=== PATIENT | male | born 1995 | race Two or more races ===

== ENCOUNTER 2017-11-24 22:16 | Emergency (ER) | payer MEDICAID ==
[~2017-11-24] VITALS: Ht 182.9 cm; Wt 90.7 kg
[2017-11-24 22:24] VITALS: Ht 182.9 cm; Wt 90.7 kg
[2017-11-24 23:27] VITALS: BP 142/61
== END 2017-11-24 23:27 | disposition home or self-care (01) ==
LOC: ED 22:16
DX: K60.0 Acute anal fissure (principal); L30.9 Dermatitis, unspecified; J45.909 Unspecified asthma, uncomplicated

== ENCOUNTER 2018-04-28 21:37 | Emergency (ER) | payer MEDICAID ==
[~2018-04-28] VITALS: Ht 185.4 cm; Wt 91.2 kg
[2018-04-28 21:51] VITALS: BP 148/77; Ht 185.4 cm; Wt 91.2 kg
== END 2018-04-28 23:04 | disposition home or self-care (01) ==
LOC: ED 21:37
DX: S46.812A Strain of other muscles, fascia and tendons at shoulder and upper arm level, left arm, initial encounter (principal); W22.8XXA Striking against or struck by other objects, initial encounter; Y93.89 Activity, other specified; Y92.89 Other specified places as the place of occurrence of the external cause; Y99.8 Other external cause status